=== PATIENT | male | born 1980 | race Caucasian/White ===

== ENCOUNTER 2017-01-11 21:02 | Emergency (ER) | payer MEDICAID, OTHER ==
[~2017-01-11] VITALS: Ht 170.2 cm; Wt 65.0 kg
[2017-01-11 22:09] VITALS: Ht 170.2 cm; Wt 65.0 kg
[2017-01-12] MEDS ORDERED: CEPH-443 PO (01:29)
[2017-01-12] MEDS ORDERED: BEN25 PO (01:29)
--- NOTE | 2017-01-12 01:33 | ERD ---
ER Documentation Chief Complaint Date/Time DATE: 01/12/17 TIME: 01:31 Chief Complaint Poss bug bite Right leg HPI This is a 36-year-old male presents to the ER with a possible bug bite on his right thigh. Patient states that he thinks he got up at by around 11 AM yesterday. Last night he noticed that the area was getting more swollen and there was redness and yellow discharge coming from it. He denies any pain however does admit to itchiness. He denies any numbness or tingling of his leg. He denies any fevers or chills. ROS 12 point review of systems was done, all negative except per HPI. Medications Home Meds Active Scripts Diphenhydramine Hcl* (Benadryl*) 25 Mg Cap, 25 MG PO Q6H Y for ITCHING for 3 Days, CAP Prov:MARGARITA,DARREN C 01/12/17 Cephalexin* (Keflex*) 500 Mg Capsule, 500 MG PO QID for 7 Days, CAP Prov:MARGARITA,DARREN C 01/12/17 Allergies Allergies: Coded Allergies: No Known Allergy (Unverified , 01/11/17) PMhx/Soc Medical and Surgical Hx: pt denies Medical Hx Hx Alcohol Use: Yes Hx Substance Use: No Hx Tobacco Use: Yes Smoking Status: Current every day smoker Physical Exam Vitals Vital Signs Date Time Temp Pulse Resp B/P Pulse Ox O2 Delivery O2 Flow Rate FiO2 01/11/17 22:09 97.8 94 18 134/70 99 Physical Exam Const: [] Head: Atraumatic Eyes: Normal Conjunctiva Resp: Clear to auscultation bilaterally Cardio: Regular rate and rhythm, no murmurs Skin: There is a 3 cm x 2 cm round area of erythema with a central point with yellow discharge. Neur: Awake and alert Psych: Normal Mood and Affect Procedures/MDM This is a 36-year-old male presents to the ER with a possible infected bug bite. Patient will be sent home with Keflex and with Benadryl. At this time patient is afebrile and well-appearing. He has full range of motion of his leg and is neurovascularly intact. Patient is to follow-up with his primary care doctor within 1-2 days return to ER sooner if symptoms worsen. My medical decision making was shared with the patient understands and agrees with plan. Departure Diagnosis: Primary Impression: Infected bite wound Condition: Stable Patient Instructions: Insect Sting/Bite, Infected Additional Instructions: Call your primary care doctor TOMORROW for an appointment during the next 1-2 days.See the doctor sooner or return here if your condition worsens before your appointment time. DARREN AVILA Jan 12, 2017 01:32
== END 2017-01-12 01:48 | disposition home or self-care (01) ==
LOC: FTE 21:02
DX: S70.361A Insect bite (nonvenomous), right thigh, initial encounter (principal); L08.9 Local infection of the skin and subcutaneous tissue, unspecified; F17.210 Nicotine dependence, cigarettes, uncomplicated; W57.XXXA Bitten or stung by nonvenomous insect and other nonvenomous arthropods, initial encounter; Y92.9 Unspecified place or not applicable
CPT/HCPCS: 99283